=== PATIENT | male | born 1975 | race Caucasian/White ===

== ENCOUNTER 2018-08-11 11:44 | Emergency (ER) | payer BC ==
--- NOTE | 2018-08-11 11:45 | PDOC ---
History of Present Illness - General Chief Complaint: Pain, Acute Stated Complaint: NECK PAIN Time Seen by Provider: 08/11/18 11:45 - History of Present Illness Initial Comments: 08/11/18 13:55 Chief complaint: Neck pain History of present illness: Patient complains of pain in the lower neck posteriorly radiating to the right trapezius area. This is been present for approximately one month. It is partially relieved by aspirin but is present daily. He does a moderate amount of heavy work but recalls no acute injury. Review of systems: There is no radiation of the pain to the arms, and no distal numbness or tingling. Pain is worse with rotation of the neck, flexion, and extension. No swelling of the neck, difficulty swallowing, or other visual or focal neurologic symptoms. No chest pain, shortness of breath, abdominal pain, nausea, vomiting, diarrhea, unsteadiness of gait. Past medical history: Healthy male, no significant medical or surgical problems past her present, no medications other than aspirin for his acute pain Social/family history reviewed and noncontributory except as noted above Physical exam: Alert and oriented well-developed well-nourished, mild discomfort due to neck pain and stiffness Afebrile, vital signs normal Head atraumatic. PERRLA, fundi benign, ENT clear Neck with mild tenderness over the lower vertebrae, and the right posterior and lateral neck muscles. Good range of motion with just mild pain. No deformity or inflammatory changes Chest clear to P&A CV regular without murmur rub or gallop Abdomen benign Neurological C2 to 12 intact area strength full and symmetric. No focal sensory or motor deficits. Gait stable and unimpaired. X-ray: Severe localized DJD C5-C6 with narrowing of the joint space and anterior spurs. Impression: Severe DJD. Localized. No fracture. No subluxation. Plan: Symptomatic treatment, follow-up training specialist as directed. Fully ambulatory and in no significant pain at discharge to follow-up as directed Past History - Past Medical History Allergies/Adverse Reactions: Allergies Allergy/AdvReac Type Severity Reaction Status Date / Time No Known Allergies Allergy Verified 08/11/18 11:44 Home Medications: Ambulatory Orders Diclofenac Sodium [Voltaren -] 75 mg PO BID #20 tablet. 08/11/18 COPD: No - Immunization History Immunization Up to Date: Yes - Suicide/Smoking/Psychosocial Hx Smoking History: Never smoked Have you smoked in the past 12 months: No Hx Alcohol Use: No Drug/Substance Use Hx: No Substance Use Type: None *DC/Admit/Observation/Transfer Diagnosis at time of Disposition: Cervical spine arthritis - Discharge Dispostion Disposition: HOME Condition at time of disposition: Stable Decision to Admit order: No - Prescriptions Prescriptions: Diclofenac Sodium [Voltaren -] 75 mg PO BID #20 tablet.dr - Referrals Referrals: Mariano Garzon MD [Staff Physician] - - Patient Instructions Printed Discharge Instructions: DI for Neck Pain Additional Instructions: Rest, heat, medication as directed See training specialist for further evaluation and treatment as directed - Post Discharge Activity Forms/Work/School Notes: Back to Work
[2018-08-11 11:48] VITALS: BP 141/97; PULSE 85; TEMP 99; BMI 29.0
== END 2018-08-11 13:28 | disposition home or self-care (01) ==
LOC: FER 11:44
DX: M47.9 Spondylosis, unspecified (principal)
CPT/HCPCS: 72050-TC-FY; 99282-25

== ENCOUNTER 2023-09-22 17:29 | Emergency (ER) | payer OTHER, BC ==
[2023-09-22 17:41] VITALS: BP 135/102; PULSE 101; RESP 16; TEMP 99.5; BMI 29.0
[2023-09-22] MEDS ORDERED: DIPHTH,PERTUSS(ACELL),TET 0.5 ML DISP.SYRIN IM ONE (19:06)
[2023-09-22] MEDS: DIPHTH,PERTUSS(ACELL),TET 0.5 ML DISP.SYRIN IM ONE (19:10)
== END 2023-09-22 19:33 | disposition home or self-care (01) ==
LOC: FER 17:29
PROC: 0XQVXZZ Repair Right Little Finger, External Approach (ICD-10-PCS; principal; 2023-09-22)
PROC: 3E0234Z Introduction of Serum, Toxoid and Vaccine into Muscle, Percutaneous Approach (ICD-10-PCS; 2023-09-22)
DX: S61.216A Laceration without foreign body of right little finger without damage to nail, initial encounter (principal); W26.8XXA Contact with other sharp object(s), not elsewhere classified, initial encounter; Y99.0 Civilian activity done for income or pay; Z23 Encounter for immunization
CPT/HCPCS: 90715; 99283-25

== ENCOUNTER 2023-09-29 13:25 | Emergency (ER) | payer OTHER, BC ==
[2023-09-29 15:31] VITALS: BP 129/87; PULSE 70; RESP 20; TEMP 98.4; BMI 29.0
== END 2023-09-29 14:02 | disposition home or self-care (01) ==
LOC: FER 13:25
DX: Z48.02 Encounter for removal of sutures (principal)
CPT/HCPCS: 99281-25

== ENCOUNTER 2024-04-18 21:20 | Inpatient (IN) | payer BC, OTHER ==
[2024-04-18] MEDS ORDERED: KETOROLAC TROMETHAMINE 30 MG/1 ML VIAL ONE (22:51)
[2024-04-18] MEDS: SODIUM CHLORIDE 1,000 ML IV ONE (23:00)
[2024-04-18] MEDS: KETOROLAC TROMETHAMINE 30 MG/1 ML VIAL IVPUSH ONE (23:00)
[2024-04-18 23:07] LABS: ALBUMIN 3.7 g/dl (3.4-5.0); ALK PHOS 57 U/L (45-117); ANION GAP 9 mmol/L (4-13); BILIRUBIN,TOTAL 0.2 mg/dl (0.2-1); CALCIUM 8.8 mg/dl (8.5-10.1); CHLORIDE 104 mmol/L (98-107); CO2 27 mmol/L (21-32); CREATININE 1.4 mg/dl (0.6-1.3); GLUCOSE,RANDOM 109 mg/dl (74-106); MAGNESIUM 2.2 mg/dL (1.8-2.4); POTASSIUM 4.9 mmol/L (3.5-5.1); SGOT/AST 28 U/L (15-37); SGPT/ALT 44 U/L (7-52); SODIUM 140 mmol/L (136-145); TOT PROT 6.8 g/dl (6.4-8.2)
[2024-04-18] MEDS ORDERED: cefTRIAXone SODIUM 1 GM VIAL ONE (23:21)
[2024-04-18] MEDS ORDERED: AZITHROMYCIN 500 MG VIAL IVPB ONE (23:21)
[2024-04-18] MEDS: CEFTRIAXONE 1,000 MG in DEXTROSE 5%-WATER - 50 ML IVPB ONE (23:22)
[2024-04-18 23:29] LABS: HEMATOCRIT 39.4 % (35.4-49); MCH 22.9 pg (25.7-33.7); MCHC 32.9 g/dl (32.0-35.9); MEAN CELL VOLUME 69.8 fl (80-96); MEAN PLT VOLUME 8.9 fl (7.5-11.1); PLATELET COUNT 343.2 10^3/uL (134-434); RBC 5.65 10^6/uL (4.00-5.60); RDW 15.8 % (11.9-15.9); WHITE BLOOD COUNT 8.2 10^3/uL (4.0-10.8)
[2024-04-19] MEDS: AZITHROMYCIN IVPB 500 MG in DEXTROSE 5%-WATER - 250 ML IVPB ONE (00:01)
[2024-04-19 00:14] LABS: VENOUS BASE EXCESS -0.1 mmol/L (-2-2); VENOUS O2 SATURATION 82.8 % (70-80); VENOUS PCO2 35.2 mmHg (38-52); VENOUS PH 7.443 (7.310-7.410)
[2024-04-19] MEDS: AZITHROMYCIN 500 MG TABLET PO ONE (06:47)
[2024-04-19 09:41] LABS: CALCIUM 8.3 mg/dl (8.5-10.1); CREATININE 1.4 mg/dl (0.6-1.3); POTASSIUM 4.9 mmol/L (3.5-5.1)
[2024-04-19] MEDS: CEFTRIAXONE 1 G/50 ML PREMIX 50 ML IVPB SCH (09:50)
[2024-04-19] MEDS: guaiFENesin 200 MG/10 ML 10 ML UNIT-DOSE CUPS PO PRN (09:50)
[2024-04-19] MEDS: NEBIVOLOL 2.5 MG TABLET (FP) PO SCH (09:50)
[2024-04-19] MEDS: ACETAMINOPHEN 325 MG TABLET (FP) PO PRN (09:50)
[2024-04-19] MEDS: AZITHROMYCIN IVPB 500 MG/250 ML BAG IVPB SCH (09:53)
[2024-04-19 10:24] LABS: BASO % 0.7 % (0-2.0); EOS % 2.5 % (0-4.5); HEMATOCRIT 36.2 % (35.4-49); HEMOGLOBIN 11.2 GM/dL (11.7-16.9); LYMPH % 18.2 % (8-40); MCH 21.4 pg (25.7-33.7); MEAN CELL VOLUME 69.1 fl (80-96); MEAN PLT VOLUME 8.1 fl (7.5-11.1); MONO % 12.8 % (3.8-10.2); NEUT % 65.8 % (42.8-82.8); PLATELET COUNT 376 10^3/uL (134-434); RBC 5.23 M/mm3 (4.00-5.60); RDW 14.3 % (11.9-15.9); WHITE BLOOD COUNT 10.1 K/mm3 (4.0-10.0)
[2024-04-19 12:08] LABS: ANISOCYTOSIS 0; MACROCYTOSIS 0
[2024-04-19 14:26] VITALS: BMI 62.4
[2024-04-19 20:56] LABS: OPIATES, URI NEGATIVE (NEGATIVE); PHENCYCLIDINE,URINE NEGATIVE (NEGATIVE); URINE BARBITURATES NEGATIVE (NEGATIVE)
[2024-04-19 20:57] LABS: COCAINE, UR NEGATIVE (NEGATIVE); METHADONE, UR NEGATIVE (NEGATIVE); URINE BENZODIAZEPINES NEGATIVE (NEGATIVE)
[2024-04-19 21:01] LABS: URINE AMPHETAMINES NEGATIVE (NEGATIVE)
[2024-04-20 08:58] LABS: ALBUMIN 3.6 g/dl (3.4-5.0); BILIRUBIN,TOTAL 0.3 mg/dl (0.2-1); CALCIUM 8.7 mg/dl (8.5-10.1); CREATININE 1.4 mg/dl (0.6-1.3); MAGNESIUM 2.2 mg/dL (1.8-2.4); PHOSPHOROUS 3.8 (2.5-4.9); POTASSIUM 4.6 mmol/L (3.5-5.1); TOT PROT 6.5 g/dl (6.4-8.2)
[2024-04-20 09:36] LABS: BASO % 0.7 % (0-2.0); EOS % 2.5 % (0-4.5); HEMATOCRIT 36.4 % (35.4-49); HEMOGLOBIN 11.6 GM/dL (11.7-16.9); LYMPH % 17.6 % (8-40); MCH 21.6 pg (25.7-33.7); MCHC 31.7 g/dl (32.0-35.9); MEAN CELL VOLUME 68.1 fl (80-96); MEAN PLT VOLUME 7.9 fl (7.5-11.1); MONO % 11.6 % (3.8-10.2); NEUT % 67.6 % (42.8-82.8); PLATELET COUNT 393 10^3/uL (134-434); RBC 5.34 M/mm3 (4.00-5.60); RDW 14.4 % (11.9-15.9); WHITE BLOOD COUNT 9.3 K/mm3 (4.0-10.0)
[2024-04-20] MEDS: SODIUM CHLORIDE 1,000 ML IV SCH (09:44)
[2024-04-20 11:04] LABS: EPITHELIAL CELLS 0-5 /hpf
[2024-04-21 03:05] VITALS: RESP 18
[2024-04-21 09:00] LABS: EOS % 2.5 % (0-4.5); HEMATOCRIT 36.5 % (35.4-49); HEMOGLOBIN 11.6 GM/dL (11.7-16.9); LYMPH % 22.4 % (8-40); MCH 21.9 pg (25.7-33.7); MCHC 31.9 g/dl (32.0-35.9); MEAN CELL VOLUME 68.8 fl (80-96); MEAN PLT VOLUME 7.7 fl (7.5-11.1); MONO % 10.2 % (3.8-10.2); NEUT % 63.9 % (42.8-82.8); PLATELET COUNT 379 10^3/uL (134-434); RBC 5.31 M/mm3 (4.00-5.60); RDW 14.4 % (11.9-15.9); WHITE BLOOD COUNT 8.8 K/mm3 (4.0-10.0)
[2024-04-21 09:05] LABS: ALBUMIN 3.6 g/dl (3.4-5.0); BILIRUBIN,TOTAL 0.3 mg/dl (0.2-1); CALCIUM 8.7 mg/dl (8.5-10.1); CREATININE 1.5 mg/dl (0.6-1.3); POTASSIUM 4.7 mmol/L (3.5-5.1); TOT PROT 6.5 g/dl (6.4-8.2)
[2024-04-21 15:59] VITALS: BP 117/78; PULSE 76; TEMP 98.6
== END 2024-04-21 14:17 | disposition home or self-care (01) | DRG 194 ==
LOC: FER 21:20 → FM/S 23:46 → UNDOADMOB 23:56 → FM/S 23:56 → OBSVTOIN 04-21 08:48
PROVIDERS: ADMIT Student in an Organized Health Care Education/Training Program
DX: J18.9 Pneumonia, unspecified organism (principal); N17.9 Acute kidney failure, unspecified; R55 Syncope and collapse; I10 Essential (primary) hypertension
CPT/HCPCS: 0241U-QW; 36415; 70450-TC; 71045-TC-FY; 76775-TC; 80048; 80053; 80307; 81003; 81015; 82550; 82570; 82803; 83605; 83735; 84100; 84156; 84484; 85025; 85027; 87040; 87081; 87899; 93005; 93306-TC; 99285-25; G0378